=== PATIENT | female | born 1975 | race Caucasian/White ===

== ENCOUNTER 2020-05-26 10:13 | Emergency (ER) | payer OTHER ==
[~2020-05-26] VITALS: Ht 149.9 cm; Wt 68.0 kg
[2020-05-26 10:23] VITALS: Ht 149.9 cm; Wt 68.0 kg
[2020-05-26 11:02] LABS: microscopic required? NO
[2020-05-26 11:22] LABS: BASOPHIL % 0.8 % (0.2-1.3); PLATELET COUNT 308 x10^3mcL (179-408); RED CELL DISTRIBUTION WIDTH 13.4 % (12.3-17.7)
[2020-05-26 11:35] LABS: UA SPECIFIC GRAVITY 1.015 (1.005-1.035); urine erythrocyte NEGATIVE (NEGATIVE)
[2020-05-26 11:40] LABS: CALCIUM 8.9 mg/dL (8.5-10.1); CARBON DIOXIDE 25.4 mmol/L (21-32); CHLORIDE SERUM 106 mmol/L (98-107); CREATININE SERUM 0.8 mg/dL (0.6-1.0); GFR1 > 60 mL/min; GLUCOSE SERUM 86 mg/dL (74-106); POTASSIUM SERUM 3.8 mmol/L (3.5-5.1); SODIUM SERUM 141 mmol/L (136-145)
[2020-05-26 11:44] LABS: ALBUMIN 4.1 g/dL (3.4-5.0); ALKALINE PHOSPHATASE 76 U/L (46-116); ALT/SGPT 44 U/L (14-59); AST/SGOT 19 U/L (15-37); BILIRUBIN TOTAL 0.7 mg/dL (0.20-1.00); LIPASE 107 IU/L (73-393); TOTAL PROTEIN, SERUM 7.2 g/dL (6.4-8.2)
[2020-05-26 14:54] VITALS: BP 120/79
== END 2020-05-26 14:54 | disposition home or self-care (01) ==
LOC: ED 10:13
PROVIDERS: Emergency Medicine
DX: K57.32 Diverticulitis of large intestine without perforation or abscess without bleeding (principal); Z90.710 Acquired absence of both cervix and uterus; Z88.6 Allergy status to analgesic agent
CPT/HCPCS: J2270; J2405; J3490; J7030

== ENCOUNTER 2020-05-27 21:50 | Emergency (ER) | payer OTHER ==
[~2020-05-27] VITALS: Ht 149.9 cm; Wt 68.0 kg
[2020-05-27 22:36] VITALS: Ht 149.9 cm; Wt 68.0 kg
[2020-05-28 00:25] LABS: CALCIUM 8.8 mg/dL (8.5-10.1); CARBON DIOXIDE 24.3 mmol/L (21-32); CHLORIDE SERUM 105 mmol/L (98-107); CREATININE SERUM 0.7 mg/dL (0.6-1.0); GFR1 > 60 mL/min; GLUCOSE SERUM 99 mg/dL (74-106); POTASSIUM SERUM 3.8 mmol/L (3.5-5.1); SODIUM SERUM 138 mmol/L (136-145)
[2020-05-28 00:28] LABS: RED CELL DISTRIBUTION WIDTH 13.5 % (12.3-17.7)
[2020-05-28 00:29] LABS: PLATELET COUNT 292 x10^3mcL (179-408)
[2020-05-28 00:30] LABS: ALBUMIN 3.7 g/dL (3.4-5.0); ALKALINE PHOSPHATASE 67 U/L (46-116); ALT/SGPT 35 U/L (14-59); AST/SGOT 16 U/L (15-37); BILIRUBIN TOTAL 0.6 mg/dL (0.20-1.00); TOTAL PROTEIN, SERUM 6.8 g/dL (6.4-8.2)
[2020-05-28 01:30] VITALS: BP 102/69
== END 2020-05-28 01:31 | disposition home or self-care (01) ==
LOC: ED 21:50
PROVIDERS: Emergency Medicine
DX: K57.32 Diverticulitis of large intestine without perforation or abscess without bleeding (principal); Z88.6 Allergy status to analgesic agent; Z90.710 Acquired absence of both cervix and uterus; Z41.1 Encounter for cosmetic surgery; Z90.89 Acquired absence of other organs
CPT/HCPCS: J1956; J2270; J2405; U0003

== ENCOUNTER 2020-05-30 07:28 | Day surgery (SDC) | payer OTHER ==
[~2020-05-30] VITALS: Ht 149.9 cm; Wt 65.8 kg
[2020-05-30 08:30] VITALS: BP 101/75
[2020-05-30 12:30] VITALS: BP 115/83
== END 2020-05-30 12:00 | disposition home or self-care (01) ==
LOC: GI 07:28 → OR 10:00 → GI 12:00
PROVIDERS: ATTEND Surgery
DX: R10.32 Left lower quadrant pain (principal); K57.30 Diverticulosis of large intestine without perforation or abscess without bleeding; K64.8 Other hemorrhoids; K29.70 Gastritis, unspecified, without bleeding
CPT/HCPCS: 43235; 45378; J1200; J1610; J2250; J2310; J3010; J3490

== ENCOUNTER 2020-07-16 16:12 | Emergency (ER) | payer OTHER ==
[~2020-07-16] VITALS: Ht 149.9 cm; Wt 67.6 kg
[2020-07-16 16:24] VITALS: Ht 149.9 cm; Wt 67.6 kg
[2020-07-16 17:12] LABS: BASOPHIL % 0.9 % (0.2-1.3); PLATELET COUNT 280 x10^3mcL (179-408); RED CELL DISTRIBUTION WIDTH 13.6 % (12.3-17.7)
[2020-07-16 17:21] LABS: CALCIUM 8.5 mg/dL (8.5-10.1); CARBON DIOXIDE 27.8 mmol/L (21-32); CHLORIDE SERUM 103 mmol/L (98-107); CREATININE SERUM 0.9 mg/dL (0.6-1.0); GFR1 > 60 mL/min; GLUCOSE SERUM 99 mg/dL (74-106); POTASSIUM SERUM 3.4 mmol/L (3.5-5.1); SODIUM SERUM 141 mmol/L (136-145)
[2020-07-16 17:27] LABS: ALBUMIN 4.1 g/dL (3.4-5.0); ALKALINE PHOSPHATASE 79 U/L (46-116); ALT/SGPT 63 U/L (14-59); AST/SGOT 23 U/L (15-37); BILIRUBIN TOTAL 0.35 mg/dL (0.20-1.00); TOTAL PROTEIN, SERUM 7.6 g/dL (6.4-8.2)
[2020-07-16 18:08] VITALS: BP 128/78
== END 2020-07-16 18:00 | disposition home or self-care (01) ==
LOC: ED 16:12
PROVIDERS: Emergency Medicine
DX: M94.0 Chondrocostal junction syndrome [Tietze] (principal); R03.0 Elevated blood-pressure reading, without diagnosis of hypertension; Z90.710 Acquired absence of both cervix and uterus; Z98.82 Breast implant status; Z98.84 Bariatric surgery status; Z90.89 Acquired absence of other organs; Z88.6 Allergy status to analgesic agent